=== PATIENT | female | born 1960 | race Hispanic/Latino ===

== ENCOUNTER 2017-09-17 23:21 | Inpatient (IN) | payer OTHER, SELFPAY ==
[~2017-09-17] VITALS: Ht 160 cm; Wt 89.4 kg
[2017-09-18] MEDS ORDERED: MORPHINE SULFATE 4 MG/1ML SYG ONE ×2 (00:43→14:19)
[2017-09-18] MEDS ORDERED: ONDANSETRON HCL 4 MG/2 ML VIAL ONE (00:43)
[2017-09-18 01:01] LABS: HEMATOCRIT 36.1 % (36-48); LYMPHOCYTES % (AUTO) 4.6 % (21.0-51.0); MEAN CORPUSCULAR HEMOGLOBIN 29.6 pg (27.0-33.0); MEAN CORPUSCULAR HGB CONC 33.1 g/dL (32.0-36.0); MEAN CORPUSCULAR VOLUME 89.4 fL (79-99); NEUTROPHILS % (AUTO) 89.4 % (40.0-77.0); PLATELET COUNT (AUTO) 431 K/uL (130-400); RED BLOOD CELL COUNT(AUTO) 4.03 MIL/uL (4.00-5.50); RED CELL DISTRIBUTION WIDTH 13.8 % (11.0-15.5); WHITE BLOOD COUNT (AUTO) 20.1 K/uL (4.8-10.8)
[2017-09-18 01:07] LABS: CREATININE 0.7 mg/dL (0.5-1.5); POTASSIUM 3.6 mmol/L (3.5-5.1)
[2017-09-18 01:11] LABS: ALBUMIN 2.7 g/dL (3.5-5.0); BILIRUBIN,TOTAL 0.9 mg/dL (0.2-1.0); TOTAL PROTEIN, SERUM 7.7 g/dL (6.0-8.3)
[2017-09-18 01:19] LABS: APPEARANCE,URINE Clear (CLEAR); BILIRUBIN,URINE Negative (NEGATIVE); COLOR,URINE Yellow (YELLOW); GLUCOSE, URINE (UA) Negative (NEGATIVE); KETONES,URINE Negative (NEGATIVE); LEUKOCYTE ESTERASE ,URINE Trace (NEGATIVE); NITRATE,URINE Negative (NEGATIVE); OCCULT BLOOD,URINE Small (NEGATIVE); PROTEIN,URINE Negative (NEGATIVE)
[2017-09-18 01:25] LABS: HCG,QUAL RESULT NEGATIVE (NEGATIVE)
[2017-09-18 01:33] LABS: BACTERIA,URINE Rare /HPF (None Seen); MUCUS,URINE Moderate LPF (None Seen); RBC,URINE 0-1 /HPF (0-1); SQUAMOUS EPITHELIAL CELL,UR Moderate /LPF (0-2); WBC,URINE 0-1 /HPF (0-1)
[2017-09-18] MEDS ORDERED: IOPAMIDOL-370 75 ML VIAL IV ONE ×2 (02:05→02:07)
[2017-09-18] MEDS ORDERED: SODIUM CHLORIDE 0.9% 1000ML 3,000 ML IV ONE (02:25)
[2017-09-18] MEDS ORDERED: ZOSYN 3.375GM+NS 50ML 50 ML IV ONE (02:50)
[2017-09-18 03:15] VITALS: BP 117/66
[2017-09-18] MEDS ORDERED: DICLOFENAC (04:05)
[2017-09-18] MEDS ORDERED: [UNRECOGNIZED DRUG - OTHER] PO (04:05)
[2017-09-18] MEDS ORDERED: VITAMIN B (04:05)
[2017-09-18] MEDS ORDERED: [UNRECOGNIZED DRUG - OTHER] PO (04:05)
[2017-09-18] MEDS ORDERED: VANCOMYCIN PROTOCOL PER PHARMACY IV SCH (04:45)
[2017-09-18] MEDS ORDERED: MORPHINE SULFATE 2 MG/ML 1ML SYG IVP PRN (04:45)
[2017-09-18] MEDS ORDERED: VANCOMYCIN 1GM+NS 250ML 250 ML IV SCH (05:00)
[2017-09-18] MEDS ORDERED: HYDROMORPHONE HCL 2 MG/ML VIAL IVP ONE (06:00)
[2017-09-18] MEDS ORDERED: VANCOMYCIN 1.75 GM in SODIUM CHLORIDE 0.9% 250 ML IV SCH (06:40)
[2017-09-18] MEDS ORDERED: COMPOUND IV REFRIGERATED 1 EACH IVSOLN MISC PRN (06:45)
[2017-09-18] MEDS ORDERED: VANCOMYCIN 0.75 GM in SODIUM CHLORIDE 0.9% 250 ML IV SCH (07:15)
[2017-09-18] MEDS ORDERED: HYDROMORPHONE HCL 0.5 MG/0.5 ML ML IVP SCH (07:38)
[2017-09-18 07:54] VITALS: BP 106/61
[2017-09-18] MEDS ORDERED: HYDROMORPHONE 4MG/ML 1ML VIAL ONE (07:58)
[2017-09-18] MEDS ORDERED: ZOSYN 3.375GM+NS 50ML 50 ML IV SCH (10:00)
[2017-09-18 11:22] VITALS: BP 103/68
[2017-09-18] MEDS: ZOSYN 3.375GM+NS 50ML 50 ML IV SCH ×2 (12:23→20:37)
[2017-09-18] MEDS ORDERED: GADOBENATE DIMEGLUMINE 20 ML IV ONE (14:52)
[2017-09-18 16:31] VITALS: BP 96/66
[2017-09-18] MEDS ORDERED: HYDRALAZINE HCL 20 MG/ML VIAL IV PRN (18:00)
[2017-09-18] MEDS ORDERED: PHARMACY COMMUNICATION MISC SCH (18:00)
[2017-09-18] MEDS ORDERED: ONDANSETRON HCL 4 MG/2 ML VIAL IVP PRN (18:00)
[2017-09-18] MEDS ORDERED: CYCLOBENZAPRINE HCL 10 MG TABLET PO PRN (18:15)
[2017-09-18 20:00] VITALS: BP 108/68
[2017-09-18] MEDS: ENOXAPARIN SODIUM 40 MG/0.4 ML SYRINGE SQ SCH (20:36)
[2017-09-18] MEDS: VANCOMYCIN 1.25 GM in SODIUM CHLORIDE 0.9% 250 ML IV SCH (23:32)
[2017-09-19] VITALS (7 sets, daily range): BP systolic 107–139; BP diastolic 67–80
[2017-09-19] MEDS: MORPHINE SULFATE 2 MG/ML 1ML SYG IVP PRN ×3 (01:07→20:53)
[2017-09-19] MEDS: ZOSYN 3.375GM+NS 50ML 50 ML IV SCH ×3 (03:40→19:17)
[2017-09-19] MEDS: HYDROCODONE/ACETAMINOPHEN 5/325 MG TAB PO PRN ×2 (03:41→08:42)
[2017-09-19 05:27] LABS: BASOPHILS % (AUTO) 0.6 % (0.0-5.0); LYMPHOCYTES % (AUTO) 10.9 % (21.0-51.0); MEAN CORPUSCULAR HEMOGLOBIN 29.9 pg (27.0-33.0); MEAN CORPUSCULAR HGB CONC 33.4 g/dL (32.0-36.0); MEAN CORPUSCULAR VOLUME 89.5 fL (79-99); MONOCYTES % (AUTO) 9.7 % (3.0-13.0); NEUTROPHILS % (AUTO) 77.8 % (40.0-77.0); PLATELET COUNT (AUTO) 363 K/uL (130-400); RED BLOOD CELL COUNT(AUTO) 3.13 MIL/uL (4.00-5.50); RED CELL DISTRIBUTION WIDTH 13.8 % (11.0-15.5); WHITE BLOOD COUNT (AUTO) 15.2 K/uL (4.8-10.8)
[2017-09-19 05:42] LABS: HEMOGLOBIN A1C 6.4 % (4.0-6.0)
[2017-09-19 05:48] LABS: ALBUMIN 1.8 g/dL (3.5-5.0); BILIRUBIN,DIRECT 0.3 mg/dL (0.0-0.3); BILIRUBIN,TOTAL 0.7 mg/dL (0.2-1.0); CREATININE 0.6 mg/dL (0.5-1.5); POTASSIUM 3.6 mmol/L (3.5-5.1); TOTAL PROTEIN, SERUM 5.9 g/dL (6.0-8.3)
[2017-09-19] MEDS: PANTOPRAZOLE SODIUM 40 MG TABLET.DR PO SCH (08:34)
[2017-09-19] MEDS: ENOXAPARIN SODIUM 40 MG/0.4 ML SYRINGE SQ SCH (08:35)
[2017-09-19] MEDS: VANCOMYCIN 1.25 GM in SODIUM CHLORIDE 0.9% 250 ML IV SCH (09:09)
[2017-09-19] MEDS: CYCLOBENZAPRINE HCL 10 MG TABLET PO SCH ×3 (12:19→20:51)
[2017-09-19] MEDS: LACTULOSE 20 GM/30 ML UDCUP PO PRN (20:54)
[2017-09-19] MEDS: VANCOMYCIN 1.5 GM in SODIUM CHLORIDE 0.9% 250 ML IV SCH (22:37)
[2017-09-20] MEDS: HYDROCODONE/ACETAMINOPHEN 5/325 MG TAB PO PRN ×4 (00:50→23:35)
[2017-09-20] MEDS: ZOSYN 3.375GM+NS 50ML 50 ML IV SCH ×3 (04:05→18:28)
[2017-09-20 04:53] VITALS: BP 136/63
[2017-09-20 06:01] LABS: BASOPHILS % (AUTO) 0.4 % (0.0-5.0); EOSINOPHILS % (AUTO) 1.6 % (0.0-8.0); HEMATOCRIT 29.8 % (36-48); LYMPHOCYTES % (AUTO) 13.3 % (21.0-51.0); MEAN CORPUSCULAR HGB CONC 33.8 g/dL (32.0-36.0); MEAN CORPUSCULAR VOLUME 88.8 fL (79-99); MONOCYTES % (AUTO) 10.5 % (3.0-13.0); NEUTROPHILS % (AUTO) 74.2 % (40.0-77.0); PLATELET COUNT (AUTO) 414 K/uL (130-400); RED BLOOD CELL COUNT(AUTO) 3.36 MIL/uL (4.00-5.50); RED CELL DISTRIBUTION WIDTH 13.8 % (11.0-15.5); WHITE BLOOD COUNT (AUTO) 11.7 K/uL (4.8-10.8)
[2017-09-20 06:11] LABS: CREATININE 0.6 mg/dL (0.5-1.5); POTASSIUM 3.3 mmol/L (3.5-5.1)
[2017-09-20 08:06] VITALS: BP 118/83
[2017-09-20] MEDS: ENOXAPARIN SODIUM 40 MG/0.4 ML SYRINGE SQ SCH (08:53)
[2017-09-20] MEDS: PANTOPRAZOLE SODIUM 40 MG TABLET.DR PO SCH (08:53)
[2017-09-20] MEDS: CYCLOBENZAPRINE HCL 10 MG TABLET PO SCH ×3 (08:54→20:23)
[2017-09-20] MEDS: MORPHINE SULFATE 2 MG/ML 1ML SYG IVP PRN (08:54)
[2017-09-20] MEDS: VANCOMYCIN 1.5 GM in SODIUM CHLORIDE 0.9% 250 ML IV SCH ×2 (08:54→20:23)
[2017-09-20] MEDS: LACTULOSE 20 GM/30 ML UDCUP PO PRN (08:57)
[2017-09-20] MEDS ORDERED: POTASSIUM CHLORIDE 20MEQ/100ML 100 ML IV PRN (10:15)
[2017-09-20] MEDS ORDERED: LIDOCAINE HCL-MPF 1% 2ML VIAL IVP PRN (10:15)
[2017-09-20] MEDS ORDERED: POTASSIUM CHLORIDE 10% ELIXIR 20 MEQ/15 ML UDCUP PO PRN (10:15)
[2017-09-20 11:52] VITALS: BP 119/69
[2017-09-20] MEDS ORDERED: GADOBENATE DIMEGLUMINE 20 ML IV ONE (15:26)
[2017-09-20 17:02] VITALS: BP 119/81
[2017-09-20] MEDS: POTASSIUM CHLORIDE 20 MEQ ERTAB PO PRN ×3 (17:09→23:35)
[2017-09-20] MEDS: POLYETHYLENE GLYCOL 3350 17 GM POWD.PACK PO SCH (18:28)
[2017-09-20 20:46] VITALS: BP 134/81
[2017-09-21 00:07] VITALS: BP 112/77
[2017-09-21] MEDS: ZOSYN 3.375GM+NS 50ML 50 ML IV SCH (02:58)
[2017-09-21] MEDS: HYDROCODONE/ACETAMINOPHEN 5/325 MG TAB PO PRN ×4 (03:54→23:11)
[2017-09-21 05:00] VITALS: BP 128/82
[2017-09-21 05:19] LABS: BASOPHILS % (AUTO) 0.6 % (0.0-5.0); EOSINOPHILS % (AUTO) 1.3 % (0.0-8.0); HEMATOCRIT 32.6 % (36-48); LYMPHOCYTES % (AUTO) 11.6 % (21.0-51.0); MEAN CORPUSCULAR HEMOGLOBIN 30.1 pg (27.0-33.0); MEAN CORPUSCULAR HGB CONC 33.3 g/dL (32.0-36.0); MEAN CORPUSCULAR VOLUME 90.5 fL (79-99); MONOCYTES % (AUTO) 8.5 % (3.0-13.0); PLATELET COUNT (AUTO) 504 K/uL (130-400); RED CELL DISTRIBUTION WIDTH 14.1 % (11.0-15.5); WHITE BLOOD COUNT (AUTO) 10.4 K/uL (4.8-10.8)
[2017-09-21 05:35] LABS: CREATININE 0.8 mg/dL (0.5-1.5); POTASSIUM 3.4 mmol/L (3.5-5.1)
[2017-09-21] MEDS: POTASSIUM CHLORIDE 20 MEQ ERTAB PO PRN ×2 (05:54→09:17)
[2017-09-21 06:27] LABS: ERYTHROCYTE SEDIMENTATION RATE 130 MM/HR (0-15)
[2017-09-21 07:30] VITALS: BP 118/74
[2017-09-21] MEDS: VANCOMYCIN 1.5 GM in SODIUM CHLORIDE 0.9% 250 ML IV SCH (09:17)
[2017-09-21] MEDS: PANTOPRAZOLE SODIUM 40 MG TABLET.DR PO SCH (09:17)
[2017-09-21] MEDS: POLYETHYLENE GLYCOL 3350 17 GM POWD.PACK PO SCH (09:17)
[2017-09-21] MEDS: CYCLOBENZAPRINE HCL 10 MG TABLET PO SCH ×3 (09:17→20:26)
[2017-09-21] MEDS: ENOXAPARIN SODIUM 40 MG/0.4 ML SYRINGE SQ SCH (09:17)
[2017-09-21] MEDS: LACTULOSE 20 GM/30 ML UDCUP PO PRN (09:17)
[2017-09-21 11:00] VITALS: BP 123/62
[2017-09-21] MEDS ORDERED: BISACODYL 10 MG SUPP.RECT RC PRN (12:15)
[2017-09-21] MEDS ORDERED: ZOSYN 3.375GM+NS 50ML 50 ML IV SCH (14:00)
[2017-09-21] MEDS ORDERED: CEFTRIAXONE 2GM+NS 100ML 100 ML IV SCH (15:00)
[2017-09-21] MEDS: WATER FOR INJECTION,STERILE 20 ML VIAL IJ SCH (15:21)
[2017-09-21] MEDS: CEFTRIAXONE SODIUM 2 GM VIAL IVP SCH (15:21)
[2017-09-21 16:00] VITALS: BP 134/77
[2017-09-21 20:00] VITALS: BP 126/79
[2017-09-22] VITALS: BP 124/80
[2017-09-22 04:00] VITALS: BP 112/70
[2017-09-22 05:08] LABS: BASOPHILS % (AUTO) 0.5 % (0.0-5.0); EOSINOPHILS % (AUTO) 1.9 % (0.0-8.0); HEMATOCRIT 31.5 % (36-48); LYMPHOCYTES % (AUTO) 14.2 % (21.0-51.0); MEAN CORPUSCULAR HEMOGLOBIN 30.3 pg (27.0-33.0); MEAN CORPUSCULAR VOLUME 89.1 fL (79-99); NEUTROPHILS % (AUTO) 71.4 % (40.0-77.0); PLATELET COUNT (AUTO) 521 K/uL (130-400); RED BLOOD CELL COUNT(AUTO) 3.54 MIL/uL (4.00-5.50); RED CELL DISTRIBUTION WIDTH 13.8 % (11.0-15.5); WHITE BLOOD COUNT (AUTO) 10.5 K/uL (4.8-10.8)
[2017-09-22 05:21] LABS: CREATININE 0.8 mg/dL (0.5-1.5); POTASSIUM 3.9 mmol/L (3.5-5.1)
[2017-09-22] MEDS: HYDROCODONE/ACETAMINOPHEN 5/325 MG TAB PO PRN ×3 (06:12→20:32)
[2017-09-22 07:30] VITALS: BP 123/76
[2017-09-22] MEDS: POLYETHYLENE GLYCOL 3350 17 GM POWD.PACK PO SCH (08:14)
[2017-09-22] MEDS: CYCLOBENZAPRINE HCL 10 MG TABLET PO SCH ×3 (08:14→20:29)
[2017-09-22] MEDS: PANTOPRAZOLE SODIUM 40 MG TABLET.DR PO SCH (08:14)
[2017-09-22] MEDS: ENOXAPARIN SODIUM 40 MG/0.4 ML SYRINGE SQ SCH (08:14)
[2017-09-22 11:00] VITALS: BP 117/68
[2017-09-22] MEDS: CEFTRIAXONE SODIUM 2 GM VIAL IVP SCH (15:43)
[2017-09-22] MEDS: WATER FOR INJECTION,STERILE 20 ML VIAL IJ SCH (15:43)
[2017-09-22 16:00] VITALS: BP 121/73
[2017-09-22 20:00] VITALS: BP 130/79
[2017-09-23] VITALS: BP 117/63
[2017-09-23] MEDS: HYDROCODONE/ACETAMINOPHEN 5/325 MG TAB PO PRN ×4 (02:48→19:33)
[2017-09-23 04:00] VITALS: BP 123/75
[2017-09-23 07:30] VITALS: BP 126/76
[2017-09-23] MEDS: CYCLOBENZAPRINE HCL 10 MG TABLET PO SCH ×3 (09:43→20:07)
[2017-09-23] MEDS: ENOXAPARIN SODIUM 40 MG/0.4 ML SYRINGE SQ SCH (09:43)
[2017-09-23] MEDS: PANTOPRAZOLE SODIUM 40 MG TABLET.DR PO SCH (09:43)
[2017-09-23] MEDS: POLYETHYLENE GLYCOL 3350 17 GM POWD.PACK PO SCH (09:43)
[2017-09-23 11:00] VITALS: BP 121/78
[2017-09-23] MEDS: CEFTRIAXONE SODIUM 2 GM VIAL IVP SCH (15:00)
[2017-09-23] MEDS: WATER FOR INJECTION,STERILE 20 ML VIAL IJ SCH (15:00)
[2017-09-23 16:00] VITALS: BP 128/81
[2017-09-23 20:00] VITALS: BP 112/69
[2017-09-24] VITALS: BP 110/76
[2017-09-24 04:00] VITALS: BP 126/78
[2017-09-24] MEDS: HYDROCODONE/ACETAMINOPHEN 5/325 MG TAB PO PRN ×2 (04:37→20:31)
[2017-09-24 06:18] LABS: PROTHROMBIN TIME 10.5 SEC (9.6-11.6)
[2017-09-24 07:30] VITALS: BP 124/75
[2017-09-24 11:00] VITALS: BP 133/81
[2017-09-24] MEDS: ENOXAPARIN SODIUM 40 MG/0.4 ML SYRINGE SQ SCH (11:16)
[2017-09-24] MEDS: PANTOPRAZOLE SODIUM 40 MG TABLET.DR PO SCH (11:16)
[2017-09-24] MEDS: POLYETHYLENE GLYCOL 3350 17 GM POWD.PACK PO SCH (11:16)
[2017-09-24] MEDS: CYCLOBENZAPRINE HCL 10 MG TABLET PO SCH ×3 (11:24→20:30)
[2017-09-24] MEDS: WATER FOR INJECTION,STERILE 20 ML VIAL IJ SCH (14:47)
[2017-09-24] MEDS: CEFTRIAXONE SODIUM 2 GM VIAL IVP SCH (14:47)
[2017-09-24 16:00] VITALS: BP 110/75
[2017-09-24 20:00] VITALS: BP 123/74
[2017-09-25] VITALS: BP 109/73
[2017-09-25 03:58] VITALS: BP 106/78
[2017-09-25 05:09] LABS: HEMATOCRIT 36.7 % (36-48); MEAN CORPUSCULAR HEMOGLOBIN 29.6 pg (27.0-33.0); MEAN CORPUSCULAR HGB CONC 33.4 g/dL (32.0-36.0); MEAN CORPUSCULAR VOLUME 88.6 fL (79-99); PLATELET COUNT (AUTO) 642 K/uL (130-400); RED BLOOD CELL COUNT(AUTO) 4.14 MIL/uL (4.00-5.50); RED CELL DISTRIBUTION WIDTH 13.7 % (11.0-15.5); WHITE BLOOD COUNT (AUTO) 11.1 K/uL (4.8-10.8)
[2017-09-25 05:19] LABS: CREATININE 0.9 mg/dL (0.5-1.5); POTASSIUM 3.9 mmol/L (3.5-5.1)
[2017-09-25 07:00] VITALS: BP 114/79
[2017-09-25] MEDS: PANTOPRAZOLE SODIUM 40 MG TABLET.DR PO SCH (08:31)
[2017-09-25] MEDS: POLYETHYLENE GLYCOL 3350 17 GM POWD.PACK PO SCH (08:31)
[2017-09-25] MEDS: ENOXAPARIN SODIUM 40 MG/0.4 ML SYRINGE SQ SCH (08:31)
[2017-09-25] MEDS: CYCLOBENZAPRINE HCL 10 MG TABLET PO SCH ×2 (08:31→16:18)
[2017-09-25] MEDS: HYDROCODONE/ACETAMINOPHEN 5/325 MG TAB PO PRN ×2 (08:39→16:18)
[2017-09-25 10:51] VITALS: BP 117/76
[2017-09-25 15:00] VITALS: BP 115/70
[2017-09-25] MEDS: CEFTRIAXONE SODIUM 2 GM VIAL IVP SCH (16:17)
[2017-09-25] MEDS: WATER FOR INJECTION,STERILE 20 ML VIAL IJ SCH (16:17)
[2017-09-25] MEDS ORDERED: CEFX2I IV (17:23)
== END 2017-09-25 18:41 | disposition home or self-care (01) | DRG 872 ==
LOC: EDH 23:21 → OBSVTOIN 23:22 → EDHIP 23:22 → 4AH 09-18 03:47 → 4BH 09-23 20:34
PROVIDERS: ADMIT Family Medicine; ATTEND Family Medicine
PROC: 3E0233Z Introduction of Anti-inflammatory into Muscle, Percutaneous Approach (ICD-10-PCS; 2017-09-18)
PROC: 02HV33Z Insertion of Infusion Device into Superior Vena Cava, Percutaneous Approach (ICD-10-PCS; principal; 2017-09-24)
DX: A40.3 Sepsis due to Streptococcus pneumoniae (principal); M86.9 Osteomyelitis, unspecified; E66.9 Obesity, unspecified; K59.00 Constipation, unspecified; M46.46 Discitis, unspecified, lumbar region; M47.9 Spondylosis, unspecified; Z68.34 Body mass index [BMI] 34.0-34.9, adult; Z79.899 Other long term (current) drug therapy; Z28.21 Immunization not carried out because of patient refusal
CPT/HCPCS: 36415; 71045; 72125; 72130; 72133; 72156; 72157; 72158; 76705; 80048; 80053; 80061; 80076; 80202; 81001; 81025; 82150; 83036; 83605; 83690; 85025; 85027; 85610; 85651; 87040; 87186; 93306; A9577; J0696; J1170; J1650; J2270; J2405; J2543; J3370; J7030; Q9967